=== PATIENT | male | born 1975 | race Caucasian/White ===

== ENCOUNTER 2017-04-29 17:00 | Inpatient (IN) | payer SELFPAY ==
[~2017-04-29] VITALS: Ht 188 cm; Wt 91.4 kg
[2017-04-29] VITALS (7 sets, daily range): BP systolic 127–143; BP diastolic 75–90; PULSE 56–78; RESP 16–24; TEMP 97.3–98.9; O2SAT 98–100
[2017-04-29] MEDS ORDERED: SODIUM CHLOR 0.9% 1000 ML INJ 1,000 ML IV SCH (17:06)
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
[2017-04-29] MEDS ORDERED: MORPHINE SULFATE 4 MG/ML INJ IV PUSH ONE ×2 (17:15→18:30)
[2017-04-29] MEDS ORDERED: ONDANSETRON HCL 4 MG/2 ML VIAL IV PUSH ONE (17:15)
[2017-04-29] MEDS ORDERED: ceFAZolin 2 GM PREMIX 50 ML IV ONE (17:15)
[2017-04-29] MEDS ORDERED: DIPHTH/TETANUS/ACEL PERTUSSIS (BOOSTER) 0.5 ML VIAL/PFS IM ONE (17:15)
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
[2017-04-29 18:03] LABS: AUTOMATED NEUTROPHIL # 10.6 TH/MM3 (1.8-7.7); BASOPHIL # 0.9 TH/MM3 (0-0.2); BASOPHIL % 6.4 % (0.0-2.0); EOSINOPHIL % 0.2 % (0.0-4.0); HEMATOCRIT 44.5 % (39.0-51.0); HEMOGLOBIN 15.4 GM/DL (13.0-17.0); LYMPH % 7.3 % (9.0-44.0); MEAN CELL VOLUME 86.9 FL (80.0-100.0); MEAN CORPUSCULAR HEMOGLOBIN 30.1 PG (27.0-34.0); MEAN CORPUSCULAR HGB CONC 34.6 % (32.0-36.0); MEAN PLATELET VOLUME 9.3 FL (7.0-11.0); MONO % 6.7 % (0.0-8.0); MONOCYTE # 0.9 TH/MM3 (0-0.9); NEUT % 79.4 % (16.0-70.0); PLATELET COUNT 195 TH/MM3 (150-450); RED BLOOD COUNT 5.12 MIL/MM3 (4.50-5.90); RED CELL DISTRIBUTION WIDTH 13.6 % (11.6-17.2); WHITE BLOOD COUNT 13.4 TH/MM3 (4.0-11.0)
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
[2017-04-29 18:26] LABS: INTERNATIONAL NORMALIZED RATIO 1.1 RATIO; PROTHROMBIN TIME - PATIENT 10.8 SEC (9.8-11.6)
[2017-04-29 18:30] LABS: ALBUMIN 4.9 GM/DL (3.4-5.0); AST (GOT) 43 U/L (15-37); BICARBONATE 23.9 MEQ/L (21.0-32.0); BLOOD UREA NITROGEN 16 MG/DL (7-18); CALCIUM 9.9 MG/DL (8.5-10.1); CHLORIDE 105 MEQ/L (98-107); GLOMERULAR FILTRATION RATE 44 ML/MIN (>89); GLUCOSE,RANDOM 139 MG/DL (74-106); SODIUM (NA) 139 MEQ/L (136-145)
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
[2017-04-29 18:32] LABS: ALT (GPT) 35 U/L (12-78)
[2017-04-29 18:33] LABS: ALKALINE PHOSPHATASE 58 U/L (45-117); TOTAL BILIRUBIN ADULT 0.8 MG/DL (0.2-1.0); TOTAL PROTEIN 7.6 GM/DL (6.4-8.2)
[2017-04-29] MEDS ORDERED: IOHEXOL 350 MG/ML 10 ML VIAL (for RAD DIAG) IVCONTRAST ONE (18:36)
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
[2017-04-29] MEDS ORDERED: PROPOFOL 200 MG/20 ML AMP IV ONE (18:45)
[2017-04-29] MEDS ORDERED: HYDROmorphone HCL PCA 6 MG/30 ML IV SCH (19:00)
[2017-04-29] MEDS ORDERED: MISCELLANEOUS NURSING INFORMATION XX SCH (19:00)
[2017-04-29] MEDS ORDERED: CHLORHEXIDINE GLUCONATE 2 % 1 PACK (2 CLOTHS) TOP PRN (19:00)
[2017-04-29] MEDS ORDERED: NALOXONE HCL 0.4 MG/ML AMP IV PUSH PRN (19:00)
[2017-04-29 19:07] LABS: BANDS 3 % (0-6); LYMPHOCYTES 15 % (9-44); MONOCYTES 2 % (0-8); NEUTROPHIL # MANUAL DIFF 11.1 TH/MM3 (1.8-7.7); POLYS (SEG NEUTROPHILS) 80 % (16-70)
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
[2017-04-29] MEDS ORDERED: ACETAMINOPHEN 1000 MG/100 ML 100 ML IV ONE (20:00)
[2017-04-29] MEDS ORDERED: HYDROmorphone HCL PF 2 MG/ML VIAL IV ONE (20:00)
[2017-04-29] MEDS: ACETAMINOPHEN 1000 MG/100 ML 100 ML IV SCH (20:11)
[2017-04-29] MEDS: LORazepam 2 MG/ML VIAL IV PUSH PRN (20:32)
[2017-04-29] MEDS: SODIUM CHLOR 0.9% 1000 ML INJ 1,000 ML IV SCH (20:45)
[2017-04-29] MEDS: DOCUSATE SODIUM 100 MG CAP PO SCH (21:00)
[2017-04-29] MEDS: PCA - TOTAL MG DILAUDID DELIVERED PER SHIFT OTHER SCH (22:00)
[2017-04-29] MEDS ORDERED: CLON.5 PO (22:19)
[2017-04-29] MEDS ORDERED: OMEP20CA2 (22:19)
[2017-04-29] MEDS ORDERED: HYDROmorphone HCL PF 2 MG/ML VIAL IV PRN (23:30)
[2017-04-29] MEDS: KETOROLAC TROMETHAMINE 30 MG/ML (IVP) VIAL IV PUSH SCH (23:48)
[2017-04-30] VITALS (7 sets, daily range): BP systolic 116–144; BP diastolic 66–86; PULSE 70–93; RESP 17–21; TEMP 95.6–97.6; O2SAT 96–100
[2017-04-30] MEDS: ACETAMINOPHEN 1000 MG/100 ML 100 ML IV SCH ×3 (02:05→15:14)
[2017-04-30] MEDS: ONDANSETRON HCL 4 MG/2 ML VIAL IV PUSH PRN ×4 (02:09→21:40)
[2017-04-30] MEDS ORDERED: POVIDONE IODINE 5% (ANTISEPSIS KIT) 4 APPLICATIONS EACH NARE PRN (03:15)
[2017-04-30] MEDS ORDERED: CHLORHEXIDINE GLUCONATE 2 % 1 PACK (2 CLOTHS) TOPICAL PRN (03:15)
[2017-04-30] MEDS ORDERED: LACTATED RINGER'S 1000 ML IV PRN (03:15)
[2017-04-30] MEDS: CHLORHEXIDINE GLUCONATE 2 % 1 PACK (2 CLOTHS) TOP SCH (04:00)
[2017-04-30] MEDS: SODIUM CHLOR 0.9% 1000 ML INJ 1,000 ML IV SCH ×2 (05:50→21:26)
[2017-04-30] MEDS: KETOROLAC TROMETHAMINE 30 MG/ML (IVP) VIAL IV PUSH SCH ×3 (05:54→18:00)
[2017-04-30] MEDS: PCA - TOTAL MG DILAUDID DELIVERED PER SHIFT OTHER SCH ×3 (06:06→21:44)
[2017-04-30 06:20] LABS: AUTOMATED NEUTROPHIL # 9.4 TH/MM3 (1.8-7.7); BASOPHIL % 0.2 % (0.0-2.0); HEMATOCRIT 41.2 % (39.0-51.0); HEMOGLOBIN 14.2 GM/DL (13.0-17.0); LYMPH % 5.4 % (9.0-44.0); LYMPHOCYTE # 0.6 TH/MM3 (1.0-4.8); MEAN CORPUSCULAR HEMOGLOBIN 30.2 PG (27.0-34.0); MEAN CORPUSCULAR HGB CONC 34.4 % (32.0-36.0); MONO % 7.6 % (0.0-8.0); MONOCYTE # 0.8 TH/MM3 (0-0.9); NEUT % 86.8 % (16.0-70.0); PLATELET COUNT 144 TH/MM3 (150-450); RED BLOOD COUNT 4.69 MIL/MM3 (4.50-5.90); RED CELL DISTRIBUTION WIDTH 13.3 % (11.6-17.2); WHITE BLOOD COUNT 10.8 TH/MM3 (4.0-11.0)
[2017-04-30 07:04] LABS: ALBUMIN 4.2 GM/DL (3.4-5.0); ALKALINE PHOSPHATASE 54 U/L (45-117); ALT (GPT) 33 U/L (12-78); AST (GOT) 49 U/L (15-37); BLOOD UREA NITROGEN 13 MG/DL (7-18); CALCIUM 8.6 MG/DL (8.5-10.1); CHLORIDE 108 MEQ/L (98-107); CREATININE 1.06 MG/DL (0.60-1.30); GLOMERULAR FILTRATION RATE 60 ML/MIN (>89); GLUCOSE,RANDOM 135 MG/DL (74-106); SODIUM (NA) 141 MEQ/L (136-145); TOTAL BILIRUBIN ADULT 0.7 MG/DL (0.2-1.0); TOTAL PROTEIN 6.9 GM/DL (6.4-8.2)
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
[2017-04-30] MEDS: DOCUSATE SODIUM 100 MG CAP PO SCH ×2 (08:41→21:40)
[2017-04-30] MEDS: METHOCARBAMOL 500 MG TAB PO SCH ×2 (08:42→15:14)
[2017-04-30] MEDS: GABAPENTIN 100 MG CAP PO SCH ×3 (08:42→18:00)
[2017-04-30] MEDS: LIDOCAINE HCL 5% PATCH T-DERMAL SCH (08:43)
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
[2017-04-30] MEDS ORDERED: ROCURONIUM INJ 50 MG/5 ML SYRINGE IV PUSH ONE (12:00)
[2017-04-30] MEDS ORDERED: NEOSTIGMINE 5 MG/5 ML SYRINGE IV PUSH ONE (12:00)
[2017-04-30] MEDS ORDERED: PROPOFOL 200 MG/20 ML AMP IV ONE (12:00)
[2017-04-30] MEDS ORDERED: GLYCOPYRROLATE 1 MG/5 ML SYRINGE IV PUSH ONE (12:00)
[2017-04-30] MEDS ORDERED: LIDOCAINE HCL 1% PF 5 ML SYRINGE OTHER ONE (12:00)
[2017-04-30] MEDS ORDERED: ceFAZolin INJ 1,000 MG VIAL IV ONE (12:00)
[2017-04-30] MEDS ORDERED: ONDANSETRON HCL 4 MG/2 ML VIAL IV ONE (12:00)
[2017-04-30] MEDS ORDERED: DEXAMETHASONE SOD PHOS 4 MG/ML VIAL IV ONE (12:00)
[2017-04-30] MEDS ORDERED: LACTATED RINGER'S 1000 ML INJ 1,000 ML IV ONE (12:00)
[2017-04-30] MEDS: LORazepam 2 MG/ML VIAL IV PUSH PRN (12:19)
[2017-04-30] MEDS: HYDROmorphone HCL PCA 6 MG/30 ML IV SCH (13:01)
[2017-04-30] MEDS: clonazePAM 0.5 MG TAB PO SCH ×2 (13:02→18:00)
[2017-04-30] MEDS ORDERED: LIDOCAINE HCL 2% 50 ML VIAL ONE (17:51)
[2017-04-30] MEDS ORDERED: NEOMYCIN/POLYMYXIN 1 ML G.U. IRRIGANT ONE (17:52)
[2017-04-30] MEDS ORDERED: FAMOTIDINE 20 MG/2 ML VIAL ONE (17:59)
[2017-04-30] MEDS ORDERED: fentaNYL CITRATE 250 MCG/5 ML AMP ONE (17:59)
[2017-04-30] MEDS ORDERED: BACITRACIN TOP OINT 15 GM TUBE ONE (18:48)
[2017-04-30] MEDS ORDERED: ACETAMINOPHEN 1000 MG/100 ML 100 ML IV ONE (18:49)
[2017-04-30] MEDS ORDERED: *MEPERIDINE 25 MG INJ VIAL PERIprocedural Use ONLY ONE (20:03)
[2017-04-30] MEDS ORDERED: *PROMETHAZINE 25 MG/ML VIAL PERIprocedural use ONLY ONE (20:06)
[2017-04-30] MEDS ORDERED: DO NOT ADM ANY ANTICOAGULANT DRUGS PRN (20:08)
--- NOTE | 2017-04-30 20:22 | PD.ORT.PN ---
Subjective Subjective Remarks Patient reports pain controlled in PACU. Nauseated Objective Vitals Vital Signs Date Time Temp Pulse Resp B/P (MAP) Pulse Ox O2 Delivery O2 Flow Rate FiO2 04/30/17 16:00 97.6 73 18 132/74 (93) 100 04/30/17 14:00 16 04/30/17 12:00 96.6 90 17 120/76 (91) 100 04/30/17 09:00 Nasal Cannula 3.00 04/30/17 08:00 97.4 76 18 116/72 (87) 100 04/30/17 07:57 100 Room Air 04/30/17 07:57 100 04/30/17 06:06 17 04/30/17 04:00 95.6 70 21 117/66 (83) 96 04/30/17 03:49 Nasal Cannula 3.00 04/30/17 00:36 95.8 93 19 121/74 (90) 96 04/29/17 22:00 17 04/29/17 21:42 99 04/29/17 21:42 99 Room Air 04/29/17 21:10 17 04/29/17 20:36 70 16 127/75 (92) 98 Nasal Cannula 4.00 I/O 04/29/17 04/29/17 04/29/17 04/30/17 04/30/17 04/30/17 07:00 15:00 23:00 07:00 15:00 23:00 Intake Total 1050 ml 2010 ml 1520 ml Output Total 1937 ml 579 ml Balance 1050 ml 73 ml 941 ml Intake Oral 960 ml 720 ml IV Total 1050 ml 1050 ml 800 ml Output Urine Total 675 ml 350 ml Emesis 1250 ml 200 ml Chest Tube Drainage Total 12 ml 24 ml Estimated Blood Loss 5 ml Bladder Scan Volume Amount 531 ml 216 ml # Bowel Movements 0 Result Diagram: 04/30/17 0410 04/30/17 0520 Imaging Last 24 hours Impressions Chest X-Ray 04/30/17 0000 Signed Impressions: Service Date/Time: Sunday, April 30, 2017 04:22 - CONCLUSION: Stable position of left thoracostomy tube without pneumothorax. Lungs are grossly clear. Chaparro Sharma MD Objective Remarks Splint in place on left hand and dressing in place left leg Assessment & Plan Assessment and Plan POD0 s/p I&D left index finger, full thickness skin graft left leg to left index finger -IV Ab per primary team, please dc on oral antibiotics -Elevate hand, nonweightbearing left hand -Splint to be left in place until followup, DO NOT remove splint left hand, patient to followup with myself in 5-7 days or hand surgeon in [place] who performed prior revision amputation left index finger -Sutures to be removed from left leg 2 weeks oHlly Rodriguez MD Apr 30, 2017 20:22
[2017-04-30] MEDS ORDERED: *morphine SULFATE 10 MG/ML PERIprocedure ONLY ONE (20:26)
[2017-04-30] MEDS ORDERED: PROMETHAZINE INJ 25 MG/ML VIAL ONE (20:40)
[2017-04-30] MEDS: REMOVE OLD LIDOCAINE PATCH T-DERMAL SCH (21:00)
[2017-04-30] MEDS: MAGNESIUM HYDROXIDE SUSP 30 ML CUP PO SCH (21:00)
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
[2017-05-01] VITALS: BP 143/79; PULSE 108; RESP 20; TEMP 97.2; O2SAT 94
[2017-05-01] MEDS: KETOROLAC TROMETHAMINE 30 MG/ML (IVP) VIAL IV PUSH SCH ×4 (00:53→18:18)
[2017-05-01] MEDS: METHOCARBAMOL 500 MG TAB PO SCH ×3 (00:53→16:34)
[2017-05-01] MEDS: HYDROmorphone HCL PCA 6 MG/30 ML IV SCH ×2 (01:39→06:38)
[2017-05-01] MEDS: CHLORHEXIDINE GLUCONATE 2 % 1 PACK (2 CLOTHS) TOP SCH (03:01)
[2017-05-01 04:02] VITALS: BP 120/74; PULSE 71; RESP 20; TEMP 98.2; O2SAT 97
[2017-05-01 04:40] LABS: AUTOMATED NEUTROPHIL # 6.3 TH/MM3 (1.8-7.7); BASOPHIL % 0.2 % (0.0-2.0); HEMATOCRIT 36.1 % (39.0-51.0); HEMOGLOBIN 12.7 GM/DL (13.0-17.0); LYMPH % 9.3 % (9.0-44.0); LYMPHOCYTE # 0.7 TH/MM3 (1.0-4.8); MEAN CELL VOLUME 87.3 FL (80.0-100.0); MEAN CORPUSCULAR HEMOGLOBIN 30.6 PG (27.0-34.0); MEAN CORPUSCULAR HGB CONC 35.1 % (32.0-36.0); MEAN PLATELET VOLUME 9.1 FL (7.0-11.0); MONO % 9.2 % (0.0-8.0); MONOCYTE # 0.7 TH/MM3 (0-0.9); NEUT % 81.3 % (16.0-70.0); PLATELET COUNT 141 TH/MM3 (150-450); RED BLOOD COUNT 4.14 MIL/MM3 (4.50-5.90); RED CELL DISTRIBUTION WIDTH 13.4 % (11.6-17.2); WHITE BLOOD COUNT 7.8 TH/MM3 (4.0-11.0)
[2017-05-01 05:09] LABS: BICARBONATE 26.6 MEQ/L (21.0-32.0); CALCIUM 7.7 MG/DL (8.5-10.1); CREATININE 0.9 MG/DL (0.60-1.30)
[2017-05-01] MEDS: LORazepam 2 MG/ML VIAL IV PUSH PRN ×2 (05:54→22:05)
[2017-05-01] MEDS: PCA - TOTAL MG DILAUDID DELIVERED PER SHIFT OTHER SCH (05:59)
[2017-05-01] MEDS: SODIUM CHLOR 0.9% 1000 ML INJ 1,000 ML IV SCH (06:29)
--- NOTE | 2017-05-01 06:30 | RADRPT ---
EXAM DATE/TIME: 05/01/2017 05:17 [facility] COMPARISON: CHEST SINGLE AP, April 30, 2017, 4:22. INDICATIONS : Shortness of breath, possible pulmonary disease. MEDICAL HISTORY : None. SURGICAL HISTORY : None. ENCOUNTER: Subsequent ACUITY: 3 days PAIN SCORE: 4/10 LOCATION: Left chest FINDINGS: A single view of the chest demonstrates left-sided thoracostomy tube is stable in position without pn eumothorax. There appears be some persistent atelectasis or scarring in the left lower lobe projectin g over the heart. Right lung remains clear. Heart size is normal. Multiple left-sided posterior rib f ractures. CONCLUSION: 1. Multiple posterior left rib fractures with persistent atelectasis/scarring in the left lower lobe. 2. No pneumothorax. Right lung remains clear. Chaparro Sharma MD on May 01, 2017 at 6:27 Board Certified Radiologist. This report was verified electronically.
[2017-05-01] MEDS ORDERED: DOCU1CAP39 PO (07:38)
[2017-05-01] MEDS ORDERED: MAGN30S PO (07:38)
[2017-05-01 08:00] VITALS: BP 135/86; PULSE 78; RESP 17; TEMP 98.3; O2SAT 99
[2017-05-01] MEDS: MAGNESIUM HYDROXIDE SUSP 30 ML CUP PO SCH ×2 (09:00→21:19)
[2017-05-01] MEDS: LACTULOSE SYRUP 20 GM/30 ML CUP PO SCH (09:00)
[2017-05-01] MEDS: GABAPENTIN 100 MG CAP PO SCH ×3 (09:05→18:18)
[2017-05-01] MEDS: DOCUSATE SODIUM 100 MG CAP PO SCH ×2 (09:05→21:19)
[2017-05-01] MEDS: clonazePAM 0.5 MG TAB PO SCH ×3 (09:05→18:18)
[2017-05-01] MEDS: LIDOCAINE HCL 5% PATCH T-DERMAL SCH (09:05)
[2017-05-01] MEDS ORDERED: oxyCODONE/ACETAMINOPHEN 7.5 MG/325 MG TAB PO PRN (11:45)
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
[2017-05-01] MEDS: oxyCODONE/ACETAMINOPHEN 10 MG/325 MG TAB PO PRN ×3 (11:55→21:31)
[2017-05-01 12:00] VITALS: BP 127/72; PULSE 74; RESP 16; TEMP 98.2; O2SAT 97
[2017-05-01 16:00] VITALS: BP 127/73; PULSE 85; RESP 16; TEMP 96.3; O2SAT 97
[2017-05-01] MEDS ORDERED: GABA100C4 PO (16:55)
[2017-05-01] MEDS ORDERED: CEPH-460 PO (16:55)
[2017-05-01] MEDS ORDERED: METH500T3 PO (16:55)
[2017-05-01] MEDS ORDERED: OXYC1TAB35 PO (16:55)
[2017-05-01] MEDS ORDERED: LIDO1ADH4 T-DERMAL (16:55)
[2017-05-01] MEDS: ENOXAPARIN SODIUM 40 MG/0.4 ML SYRINGE SQ SCH (18:19)
[2017-05-01] MEDS: HYDROmorphone HCL PF 2 MG/ML VIAL IV PUSH PRN ×2 (18:20→22:48)
--- NOTE | 2017-05-01 18:23 | RADRPT ---
EXAM DATE/TIME: 05/01/2017 17:22 [facility] COMPARISON: No previous studies available for comparison. INDICATIONS : Trauma. MEDICAL HISTORY : None. SURGICAL HISTORY : Appendectomy. Tonsillectomy. ENCOUNTER: Initial ACUITY: 2 day PAIN SCORE: 6/10 LOCATION: Left shoulder TECHNIQUE: Multiplanar, multisequence MRI examination was performed without contrast. FINDINGS: There is a fracture of the body of the scapula which is displaced posteriorly. There is fairly extens gregor edema in the musculature around the left shoulder joint especially in the subscapularis muscle an d to a lesser extent in the supraspinatus, infraspinatus muscle tear is major. No fracture is identified. Mild tendinopathy in the distal supraspinatus tendon. There is a bone contusion of the humeral head. No significant shoulder joint effusion. CONCLUSION: 1. Fracture of the body of the scapula with posterior displacement of fairly extensive edema in the s urrounding musculature as above. 2. Small contusion of the humeral head. 3. No tendon rupture. Mild tendinopathy distal supraspinatus tendon. Edinson Fernando MD on May 01, 2017 at 18:15 Board Certified Radiologist. This report was verified electronically.
[2017-05-01] MEDS: ONDANSETRON HCL 4 MG/2 ML VIAL IV PUSH PRN (18:28)
[2017-05-01 20:00] VITALS: BP 128/87; PULSE 77; RESP 18; TEMP 96.5; O2SAT 97
[2017-05-01] MEDS: REMOVE OLD LIDOCAINE PATCH T-DERMAL SCH (21:00)
[2017-05-01] MEDS: PANTOPRAZOLE SOD 40 MG DELAYED RELEASE TAB PO SCH (21:19)
[2017-05-01] MEDS: CALCIUM CARBONATE 500 MG CHEWABLE TAB CHEW PRN (21:19)
[2017-05-02] VITALS: BP 134/88; PULSE 87; RESP 20; TEMP 96.5; O2SAT 95
[2017-05-02] MEDS: METHOCARBAMOL 500 MG TAB PO SCH ×3 (00:27→16:07)
[2017-05-02] MEDS: KETOROLAC TROMETHAMINE 30 MG/ML (IVP) VIAL IV PUSH SCH ×4 (00:27→17:14)
[2017-05-02] MEDS: HYDROmorphone HCL PF 2 MG/ML VIAL IV PUSH PRN ×4 (02:58→20:59)
[2017-05-02 06:29] VITALS: O2SAT 95
--- NOTE | 2017-05-02 07:11 | RADRPT ---
EXAM DATE/TIME: 05/02/2017 06:09 [facility] COMPARISON: CHEST SINGLE AP, May 01, 2017, 5:17. INDICATIONS : Short of breath, pain left chest, evaluate pneumothorax and chest tube on left MEDICAL HISTORY : pneumothorax, rib fractures SURGICAL HISTORY : chest tube ENCOUNTER: Subsequent ACUITY: 4 - 6 days PAIN SCORE: 10/10 LOCATION: Left chest FINDINGS: Left chest drainage tube tip remains projected in the medial mid chest. No evidence of pneumothorax. Linear areas of infiltrate or scarring the retrocardiac region stable from prior. Right lung is cl ear. The heart is normal size. Both hemidiaphragms are well delineated. CONCLUSION: Stable position of chest tube. No evidence pneumothorax. Brendon Selby MD on May 02, 2017 at 7:09 Board Certified Radiologist. This report was verified electronically.
[2017-05-02 08:00] VITALS: BP 126/76; PULSE 81; RESP 17; TEMP 97.3; O2SAT 94
[2017-05-02] MEDS: LIDOCAINE HCL 5% PATCH T-DERMAL SCH (09:55)
[2017-05-02] MEDS: clonazePAM 0.5 MG TAB PO SCH ×3 (09:56→17:14)
[2017-05-02] MEDS: GABAPENTIN 100 MG CAP PO SCH ×2 (09:56→13:12)
[2017-05-02] MEDS: PANTOPRAZOLE SOD 40 MG DELAYED RELEASE TAB PO SCH (09:56)
[2017-05-02] MEDS: DOCUSATE SODIUM 100 MG CAP PO SCH ×2 (09:56→20:47)
[2017-05-02] MEDS: MAGNESIUM HYDROXIDE SUSP 30 ML CUP PO SCH ×2 (09:58→20:48)
[2017-05-02] MEDS: LACTULOSE SYRUP 20 GM/30 ML CUP PO SCH (09:58)
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
[2017-05-02] MEDS ORDERED: ACETAMINOPHEN/HYDROcodone 325 MG/5 MG TAB PO PRN (11:30)
[2017-05-02 12:00] VITALS: BP 140/70; PULSE 70; RESP 17; TEMP 97.4; O2SAT 93
[2017-05-02] MEDS: ACETAMINOPHEN/HYDROcodone 325 MG/10 MG TAB PO PRN (12:50)
[2017-05-02 15:00] VITALS: BP 133/85; PULSE 72; RESP 18; TEMP 98.3; O2SAT 96
[2017-05-02] MEDS ORDERED: HYDROmorphone HCL PF 2 MG/ML VIAL IV PUSH ONE (16:15)
[2017-05-02] MEDS ORDERED: MELATONIN 5 MG TAB PO PRN (16:30)
[2017-05-02] MEDS ORDERED: fentaNYL 50 MCG/HR PATCH T-DERMAL SCH (17:00)
[2017-05-02] MEDS ORDERED: REMOVE OLD DURAGESIC (FENTANYL) PATCH T-DERMAL SCH (17:00)
[2017-05-02] MEDS: ENOXAPARIN SODIUM 40 MG/0.4 ML SYRINGE SQ SCH (17:13)
[2017-05-02] MEDS: GABAPENTIN 300 MG CAP PO SCH (17:14)
[2017-05-02 20:00] VITALS: BP 130/85; PULSE 81; RESP 18; TEMP 98.2; O2SAT 97
[2017-05-02] MEDS: REMOVE OLD LIDOCAINE PATCH T-DERMAL SCH (20:51)
[2017-05-02] MEDS: LORazepam 2 MG/ML VIAL IV PUSH PRN (20:53)
[2017-05-02] MEDS: SODIUM CHLORIDE 0.9% FLUSH 10 ML FLUSH IVF PRN ×2 (20:54→21:00)
--- NOTE | 2017-05-02 21:41 | PD.ORT.PN ---
Subjective Subjective Remarks Patient reports pain controlled in hand and leg. Objective Vitals Vital Signs Date Time Temp Pulse Resp B/P (MAP) Pulse Ox O2 Delivery O2 Flow Rate FiO2 05/02/17 15:00 98.3 72 18 133/85 (101) 96 05/02/17 12:00 97.4 70 17 140/70 (93) 93 05/02/17 08:20 Room Air 05/02/17 08:00 97.3 81 17 126/76 (93) 94 05/02/17 06:29 95 05/02/17 00:00 96.5 87 20 134/88 (103) 95 I/O 05/01/17 05/01/17 05/01/17 05/02/17 05/02/17 05/02/17 07:00 15:00 23:00 07:00 15:00 23:00 Intake Total 3090 ml 527 ml 720 ml 600 ml 500 ml Output Total 1175 ml 1224 ml 900 ml Balance 1915 ml 527 ml -504 ml 600 ml -400 ml Intake Oral 2240 ml 720 ml 600 ml 500 ml IV Total 850 ml 527 ml Output Urine Total 1175 ml 1200 ml 900 ml Chest Tube Drainage Total 24 ml # Voids 1 4 # Bowel Movements 0 0 0 0 Result Diagram: 05/01/17 0350 05/01/17 0350 Imaging Last 24 hours Impressions Chest X-Ray 04/30/17 0000 Signed Impressions: Service Date/Time: Sunday, April 30, 2017 04:22 - CONCLUSION: Stable position of left thoracostomy tube without pneumothorax. Lungs are grossly clear. Chaparro Sharma MD Objective Remarks Splint in place on left hand and dressing in place left leg Assessment & Plan Assessment and Plan POD2 s/p I&D left index finger, full thickness skin graft left leg to left index finger -dc on oral antibiotics -followup in office Thur or Mon if in town, otherwise followup with surgeon in [place], DO NOT remove hand splint Holly Rodriguez MD May 02, 2017 21:41
[2017-05-03] VITALS: BP 128/73; PULSE 81; RESP 19; TEMP 97; O2SAT 96
[2017-05-03] MEDS: KETOROLAC TROMETHAMINE 30 MG/ML (IVP) VIAL IV PUSH SCH ×4 (01:10→17:49)
[2017-05-03] MEDS: METHOCARBAMOL 500 MG TAB PO SCH ×3 (01:10→15:47)
[2017-05-03] MEDS: ACETAMINOPHEN/HYDROcodone 325 MG/10 MG TAB PO PRN ×3 (01:25→15:47)
[2017-05-03] MEDS: SODIUM CHLORIDE 0.9% FLUSH 10 ML FLUSH IVF PRN ×2 (06:09→22:19)
[2017-05-03] MEDS: HYDROmorphone HCL PF 2 MG/ML VIAL IV PUSH PRN ×3 (06:11→22:19)
[2017-05-03] MEDS: ONDANSETRON HCL 4 MG/2 ML VIAL IV PUSH PRN (06:19)
--- NOTE | 2017-05-03 07:34 | RADRPT ---
EXAM DATE/TIME: 05/03/2017 06:08 [facility] COMPARISON: CHEST SINGLE AP, May 02, 2017, 6:09. INDICATIONS : Short of breath, pain left chest MEDICAL HISTORY : pneumothorax, rib fractures SURGICAL HISTORY : chest tube ENCOUNTER: Subsequent ACUITY: 4 - 6 days PAIN SCORE: 10/10 LOCATION: Bilateral chest FINDINGS: Scattered patchy opacities are noted within the left mid and lower lung field consistent with atelect asis and/or pneumonia. Clinical correlation is recommended. No pneumothorax is noted status post olivia michael of left chest tube. The right lung is clear. The heart is stable. CONCLUSION: Scattered patchy opacities within the left mid and lower lung field consistent with atelectasis and/o r pneumonia. Clinical correlation is recommended. Tristin Steel MD on May 03, 2017 at 7:31 Board Certified Radiologist. This report was verified electronically.
[2017-05-03 08:00] VITALS: BP 123/81; PULSE 73; RESP 18; TEMP 95.8; O2SAT 92
[2017-05-03] MEDS ORDERED: BISACODYL 10 MG SUPP RECTAL ONE (08:30)
[2017-05-03] MEDS ORDERED: BISACODYL EC 5 MG TABEC PO ONE (08:30)
[2017-05-03] MEDS: MAGNESIUM HYDROXIDE SUSP 30 ML CUP PO SCH ×2 (09:00→22:16)
[2017-05-03] MEDS: DOCUSATE SODIUM 100 MG CAP PO SCH ×2 (09:00→22:17)
[2017-05-03] MEDS: LACTULOSE SYRUP 20 GM/30 ML CUP PO SCH (09:00)
[2017-05-03] MEDS: LIDOCAINE HCL 5% PATCH T-DERMAL SCH (09:40)
[2017-05-03] MEDS: clonazePAM 0.5 MG TAB PO SCH ×3 (09:42→17:49)
[2017-05-03] MEDS: PANTOPRAZOLE SOD 40 MG DELAYED RELEASE TAB PO SCH (09:42)
[2017-05-03] MEDS: GABAPENTIN 300 MG CAP PO SCH ×3 (09:42→17:49)
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
[2017-05-03 12:00] VITALS: BP 113/77; PULSE 70; RESP 17; TEMP 96.3; O2SAT 94
[2017-05-03 16:00] VITALS: BP 135/88; PULSE 69; RESP 18; TEMP 97.5; O2SAT 95
[2017-05-03] MEDS ORDERED: SCOPOLAMINE 1.5 MG PATCH T-DERMAL ONE (17:00)
[2017-05-03] MEDS: ENOXAPARIN SODIUM 40 MG/0.4 ML SYRINGE SQ SCH (17:50)
[2017-05-03 20:00] VITALS: BP 130/80; PULSE 72; RESP 18; TEMP 98.6; O2SAT 97
[2017-05-03] MEDS: REMOVE OLD LIDOCAINE PATCH T-DERMAL SCH (21:00)
[2017-05-04] VITALS: BP 130/66; PULSE 80; RESP 18; TEMP 98.6; O2SAT 97
[2017-05-04] MEDS: METHOCARBAMOL 500 MG TAB PO SCH ×2 (00:31→09:31)
[2017-05-04] MEDS: LORazepam 2 MG/ML VIAL IV PUSH PRN (00:31)
[2017-05-04] MEDS: KETOROLAC TROMETHAMINE 30 MG/ML (IVP) VIAL IV PUSH SCH (00:31)
[2017-05-04 06:16] VITALS: PULSE 55; O2SAT 95
[2017-05-04] MEDS: CALCIUM CARBONATE 500 MG CHEWABLE TAB CHEW PRN (06:24)
[2017-05-04] MEDS: SODIUM CHLORIDE 0.9% FLUSH 10 ML FLUSH IVF PRN (06:25)
[2017-05-04] MEDS: ONDANSETRON HCL 4 MG/2 ML VIAL IV PUSH PRN (06:25)
[2017-05-04] MEDS: ACETAMINOPHEN/HYDROcodone 325 MG/10 MG TAB PO PRN ×2 (06:33→11:10)
[2017-05-04 08:00] VITALS: BP 124/71; PULSE 58; RESP 15; TEMP 96.6; O2SAT 96
[2017-05-04] MEDS: MAGNESIUM HYDROXIDE SUSP 30 ML CUP PO SCH (09:00)
[2017-05-04] MEDS: LACTULOSE SYRUP 20 GM/30 ML CUP PO SCH (09:00)
[2017-05-04] MEDS: PANTOPRAZOLE SOD 40 MG DELAYED RELEASE TAB PO SCH (09:00)
[2017-05-04] MEDS: DOCUSATE SODIUM 100 MG CAP PO SCH (09:00)
[2017-05-04] MEDS: clonazePAM 0.5 MG TAB PO SCH ×2 (09:31→12:46)
[2017-05-04] MEDS: GABAPENTIN 300 MG CAP PO SCH ×2 (09:31→12:46)
[2017-05-04] MEDS: LIDOCAINE HCL 5% PATCH T-DERMAL SCH (09:33)
[2017-05-04] MEDS: HYDROmorphone HCL PF 2 MG/ML VIAL IV PUSH PRN (09:49)
[2017-05-04] MEDS ORDERED: HYDR-3516 PO (11:09)
[2017-05-04 12:00] VITALS: BP 121/78; PULSE 60; RESP 15; TEMP 97; O2SAT 96
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
[2017-05-06] MEDS ORDERED: REMOVE OLD SCOPOLAMINE PATCH T-DERMAL SCH (17:00)
== END 2017-05-04 14:13 | disposition home or self-care (01) | DRG 577 ==
LOC: NEPE 17:00 → NEDA 18:50 → EEVIPCON 18:50 → EDBD 18:50 → N07A 20:52
PROVIDERS: ADMIT Surgery Trauma Surgery; ATTEND Surgery Trauma Surgery
PROC: 0W9B30Z Drainage of Left Pleural Cavity with Drainage Device, Percutaneous Approach (ICD-10-PCS; 2017-04-29)
PROC: 0PDV0ZZ Extraction of Left Finger Phalanx, Open Approach (ICD-10-PCS; 2017-04-30)
PROC: 0HBJXZZ Excision of Left Upper Leg Skin, External Approach (ICD-10-PCS; 2017-04-30)
PROC: 0HRGX73 Replacement of Left Hand Skin with Autologous Tissue Substitute, Full Thickness, External Approach (ICD-10-PCS; principal; 2017-04-30 18:07)
DX: S61.201A Unspecified open wound of left index finger without damage to nail, initial encounter (principal); S27.0XXA Traumatic pneumothorax, initial encounter; S27.321A Contusion of lung, unilateral, initial encounter; S22.42XA Multiple fractures of ribs, left side, initial encounter for closed fracture; S02.2XXA Fracture of nasal bones, initial encounter for closed fracture; F41.9 Anxiety disorder, unspecified; J98.11 Atelectasis; S42.102A Fracture of unspecified part of scapula, left shoulder, initial encounter for closed fracture; V29.9XXA Motorcycle rider (driver) (passenger) injured in unspecified traffic accident, initial encounter; Z72.0 Tobacco use
CPT/HCPCS: 32551; 70450; 70486; 71045; 71260; 72125; 72129; 72132; 72170; 73120; 73221; 74177; 80048; 80053; 80307; 85007; 85025; 85027; 85610; 85730; 86850; 86900; 86901; 90471; 90715; 94150; 94762; 96374; 96375; 96376; J0131; J0690; J1100; J1170; J1650; J1885; J2060; J2175; J2270; J2405; J2550; J2710; J3010; J7030; J7120; Q9967